=== PATIENT | female | born 2000 | race Hispanic/Latino ===

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

== ENCOUNTER 2022-06-22 06:36 | Day surgery (SDC) | payer OTHER, MEDICAID ==
[~2022-06-22] VITALS: Ht 127 cm; Wt 39.5 kg
[~2022-06-22 06:36] MED LIST changes: +AMOX125REC PO; +CETI1SYP16 PO; -E-Z-GAS II EFFERVESCENT PACKET (SODIUM BICARB./CITRIC ACID/SIMETHICONE) As Ordered ONE; -E-Z-HD 98% w/w 340GM SUSP BTL As Ordered ONE; -E-Z-PAQUE 96% w/w SUSP 176GM BTL As Ordered ONE; +INSUH10VL SC; +INSULANT SC; +NS 1,000 ML IV ONE
[2022-06-22] MEDS ORDERED: propofoL 200 MG/20 ML VIAL As Ordered ONE (07:14)
[2022-06-22] MEDS ORDERED: LIDOCAINE 2% 100MG/5ML SDV (FOR ANES.) As Ordered ONE (07:14)
[2022-06-22] MEDS ORDERED: fentaNYL 100 MCG/2 ML INJECTION As Ordered ONE (07:32)
[2022-06-22 08:09] VITALS: BP 123/74
== END 2022-06-22 08:21 | disposition home or self-care (01) ==
LOC: M OPP 06:36
PROVIDERS: ATTEND Internal Medicine Gastroenterology
DX: K29.70 Gastritis, unspecified, without bleeding (principal); K22.2 Esophageal obstruction; E10.9 Type 1 diabetes mellitus without complications; I34.9 Nonrheumatic mitral valve disorder, unspecified; Q90.9 Down syndrome, unspecified; J45.909 Unspecified asthma, uncomplicated; Z79.2 Long term (current) use of antibiotics; Z79.4 Long term (current) use of insulin
CPT/HCPCS: 43239; 43249; 88305; J3010

== ENCOUNTER 2024-02-08 14:49 | Emergency (ER) | payer OTHER, MEDICAID ==
[~2024-02-08] VITALS: Ht 137.2 cm; Wt 40.5 kg
[~2024-02-08 14:49] MED LIST changes: -NS 1,000 ML IV ONE
[2024-02-08 16:44] LABS: BASO # 0.1 10^3/uL (0.0-0.2); BASO % 0.5 % (0.0-1.0); EOS # 0.1 10^3/uL (0.0-0.5); EOS % 0.6 % (0.0-3.0); HEMATOCRIT 40.9 % (36.0-47.0); HEMOGLOBIN 13.9 g/dl (12.0-15.5); LYMPH # 0.7 10^3/uL (1.5-5.0); LYMPH % 5.3 % (24.0-44.0); MEAN CORPUSCULAR HEMOGLOBIN 35.2 pg (27.0-33.0); MEAN CORPUSCULAR VOLUME 103.5 fl (80.0-96.0); MONO # 0.6 10^3/uL (0.0-0.8); MONO % 4.5 % (2.0-8.0); NEUTROPHILS # 12.1 10^3/uL (1.5-8.5); NEUTROPHILS % 88.8 % (36.0-66.0); PLATELET COUNT, AUTOMATED 266 10^3/uL (150-450); RED BLOOD COUNT 3.95 10^6/uL (4.00-5.40); WHITE BLOOD COUNT 13.6 10^3/uL (4.0-10.0)
[2024-02-08] MEDS: ACETAMINOPHEN 325MG/10.15ML UDC PO ONE (16:45)
[2024-02-08 18:12] LABS: FREE T4 1.19 NG/DL (0.89-1.76)
[2024-02-08 18:13] LABS: THYROID STIMULATING HORMONE 0.785 uIU/ML (0.55-4.78)
[2024-02-08 18:23] LABS: BLOOD UREA NITROGEN 15 MG/DL (9-23); CALCIUM LEVEL 9.3 MG/DL (8.5-10.1); CARBON DIOXIDE LEVEL 25 MMOL/L (20-31); CHLORIDE LEVEL 111 MMOL/L (98-107); CREATININE FOR GFR 0.63 MG/DL (0.55-1.30); GLOMERULAR FILTRATION RATE > 60.0 (>60); GLUCOSE, FASTING 176 MG/DL (60-100); POTASSIUM SERUM 4.6 MMOL/L (3.5-5.1); SODIUM LEVEL 141 MMOL/L (136-145)
[2024-02-08] MEDS ORDERED: AZIT200S30 PO (18:47)
[2024-02-08] MEDS: AZITHROMYCIN SUSP 200MG/5ML 30ML BOTTLE PO ONE (19:02)
[2024-02-08 19:25] VITALS: BP 103/53; TEMP 98.8; O2SAT 97
== END 2024-02-08 19:28 | disposition home or self-care (01) ==
LOC: M ED 14:49 → EDBD 14:49 → M ED 19:28
DX: R55 Syncope and collapse (principal); J20.9 Acute bronchitis, unspecified; E10.9 Type 1 diabetes mellitus without complications; Q90.9 Down syndrome, unspecified; Z79.2 Long term (current) use of antibiotics; Z79.4 Long term (current) use of insulin